=== PATIENT | female | born 1940 | race Caucasian/White ===

== ENCOUNTER → 2017-04-02 | Outpatient (CLI) | payer MEDICARE ==
[~2017-04-02] MED LIST: AMBIEN10 MG PO; ASPIRIN ENTERI325 M1 PO; CALCIUM + D 6001 TA1 PO; ECOTRIN325 MG PO; ELIQUIS5 MG PO; GLUCOSAMINE & C1 CAP PO; GLUCOSAMINE500 M2 PO; IRON1 TAB PO; MULTIVITAMIN W/1 TAB PO; SOMA PO; SYSTANE BALANCE10 ML OP; VITAMIN B12-FO1 EACH PO; ZOLPIDEM TARTRA10 MG PO
--- NOTE | ~2017-04-02 | BD1 ---
[facility] A Service of [facility] & [facility] RADIOLOGY TEXT RESULTS PATIENT: LIONEL DIAMOND LOCATION: [facility] : 42 UNIT #: [id number] AGE: [address]: TONIA NUNEZ MD SEX: F ORDER DR: [id number] [facility] [address] [place], [place] [address] [id number] O MR#: [id number] Acc #: [id number] NAME: LIONEL DIAMOND. : 1940 SEX: F STUDY DATE/TIME: 04/02/2017 13:39 UNIT: [facility] ROOM: STUDY DESCRIPTION: BD Dexa Bone Dens 1+ Site Attending Physician: Tonia Nunez M.D. Referring Physician: Tonia Nunez M.D. Ordering Physician: Tonia Nunez M.D. Primary Care Physician: Tonia Nunez M.D. MEDICAL IMAGING REPORT This report is preliminary unless electronic signature is present EXAM DXA scan 04/02/2017 HISTORY Status post menopause with no hormone replacement therapy. Osteopenia. Hysterectomy at age 41 with removal of both ovaries. Arthritis. Fracture of right hip in last 10 years. FINDINGS Bone mineral density in the lumbar spine from L1-L4 is 0.774 g/cm2 which is 2.5 standard deviations below the mean when compared to the young adult reference population which is characteristic of osteoporosis. This is 0 standard deviations from the mean when compared to the age-matched population. Compared with 02/01/2015 there has been a decrease in bone mineral density in the lumbar spine of 1.1%. Bone mineral density in the left hip was 0.579 g/cm2 which is 2.4 standard deviations below the mean when compared to the young adult reference population which is characteristic of osteopenia. This is 0.3 standard deviations below the mean when compared to the age-matched population. Compared with 02/01/2015 there has been an increase in bone mineral density in the left hip of 0.5%. IMPRESSION Bone mineral density in the lumbar spine characteristic of osteoporosis and within the left hip characteristic of osteopenia. Compared with 02/01/2015 there has been a decrease in bone mineral density in the lumbar spine and an increase in bone mineral density in the left hip. Dictated by... Edwin Carlton M.D. THIS IS AN ELECTRONICALLY VERIFIED REPORT Edwin Carlton M.D. at 04/03/2017 8:03 AM [facility] A Service of [facility] & [facility] RADIOLOGY TEXT RESULTS PATIENT: LIONEL DIAMOND [id number] : 42 UNIT #: [id number] AGE: [address]: TONIA NUNEZ MD SEX: F ORDER DR: TOM/lorraine TD: 04/02/2017 18:56 JOB #: [id number] MEDICAL IMAGING REPORT Page 1 of 1 COPY
== END | disposition home or self-care (01) ==
LOC: CWCC 13:14
DX: M81.0 Age-related osteoporosis without current pathological fracture (principal); M85.88 Other specified disorders of bone density and structure, other site
CPT/HCPCS: 77080